=== PATIENT | female | born 1990 | race Two or more races ===

== ENCOUNTER 2021-02-13 08:00 | Outpatient (CLI) | payer OTHER | END 2021-02-13 08:30 | disposition home or self-care (01) | LOC: PPH VACUNA 08:00 | DX: Z23 Encounter for immunization (principal) ==

== ENCOUNTER 2021-11-19 18:00 | Emergency (ER) | payer OTHER ==
[~2021-11-19] VITALS: Ht 157.5 cm; Wt 79.8 kg
[2021-11-19] MEDS ORDERED: KETO10TA2 PO (20:48)
[2021-11-19] MEDS ORDERED: TAMS0.4C PO (20:48)
== END 2021-11-19 20:51 | disposition home or self-care (01) ==
LOC: ER 18:00
DX: N39.0 Urinary tract infection, site not specified (principal)

== ENCOUNTER 2021-11-26 08:00 | Outpatient (CLI) | payer OTHER ==
[~2021-11-26 08:00] MED LIST: KETO10TA2 PO; TAMS0.4C PO
== END 2021-11-26 08:30 | disposition home or self-care (01) ==
LOC: PPH VACUNA 08:00
PROVIDERS: ATTEND Emergency Medicine Pediatric Emergency Medicine
DX: Z23 Encounter for immunization (principal)

== ENCOUNTER 2025-04-28 20:29 | Emergency (ER) | payer OTHER ==
[~2025-04-28] VITALS: Ht 157.5 cm; Wt 80.7 kg
[2025-04-28] MEDS ORDERED: GUAIFEN/DEXTROMETHORPHAN/PE 10 ML BLIST.PACK PO ONE (21:30)
[2025-04-28 21:37] LABS: BASO % 0.1 % (0.1-1.2); EOS # 0.07 (0.04-0.54); EOS % 1.0 % (0.7-7.0); LYMPH # 2.09 (1.18-3.74); LYMPH % 29.2 % (19.3-53.1); MEAN PLATELET VOLUME 11.80 fl (9.4-12.4); MONO # 0.54 (0.24-0.82); MONO % 7.5 % (4.7-12.5); NEUT # 4.43 (1.56-6.13); NEUT % 61.9 % (34.0-71.1); RED CELL DISTRIBUTION WIDTH 13.2 % (11.6-14.4)
[2025-04-28 22:26] LABS: COVID-19 AG NEGATIVE (NEGATIVE)
[2025-04-29] MEDS ORDERED: GILTUSS COUGH-118 M1 PO (00:03)
[2025-04-29] MEDS ORDERED: ZITHROMAX TRI-500 MG PO (00:03)
[2025-04-29] MEDS ORDERED: ACETAMINOPHEN500 M1 PO (00:03)
[2025-04-29] MEDS ORDERED: AMOX-CLAV 875-1 EACH PO (00:09)
== END 2025-04-29 00:43 | disposition home or self-care (01) ==
LOC: ER 20:29
PROVIDERS: Preventive Medicine Public Health & General Preventive Medicine
DX: J06.9 Acute upper respiratory infection, unspecified (principal); Z20.822 Contact with and (suspected) exposure to COVID-19